=== PATIENT | female | born 2000 | race Caucasian/White ===

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

== ENCOUNTER 2019-01-12 03:40 | Emergency (ER) | payer BC ==
[~2019-01-12] VITALS: Ht 160 cm; Wt 56.8 kg
[~2019-01-12 03:40] MED LIST changes: +CONSTULOSE 20G/30ML PO
[2019-01-12 03:53] VITALS: TEMP 98.2
[2019-01-12 04:01] LABS: BASO % 0.5 % (0.0-2.0); EOS # 0.1 (0.0-0.7); EOS % 1.5 % (0-4.0); GRAN # 3.5 (1.4-6.5); GRAN % 52.6 % (42.2-75.2); HEMOGLOBIN 12.6 g/dl (12.0-15.0); LYMPH # 2.3 (1.2-3.4); LYMPH % 35.4 % (20.0-51.0); MEAN CELL VOLUME 92 fl (80.0-95.0); MEAN CORPUSCULAR HEMOGLOBIN 32 pg (26.0-32.0); MEAN CORPUSCULAR HGB CONC 34 g/dl (33.0-37.0); MEAN PLATELET VOLUME 8.8 fl (7.4-10.4); MONO # 0.6 (0.1-0.6); MONO % 9.8 % (1.7-9.3); PLATELET COUNT 326 K/mm3 (130-400); RED BLOOD COUNT 3.99 M/mm3 (4.10-5.30); REDCELL DISTRIBUTION WIDTH-CV 11.9 % (11.5-14.5)
[2019-01-12 04:02] LABS: HEMATOCRIT 36.7 % (35.0-45.0)
[2019-01-12 04:11] LABS: ALBUMIN 4.4 gm/dL (3.5-5.0); BILIRUBIN,TOTAL 0.4 mg/dL (0.0-1.0); CALCIUM 8.9 mg/dL (8.4-10.2); CREATININE, serum 0.74 (0.52-1.25); TOTAL PROTEIN 7.7 gm/dL (6.4-8.2)
[2019-01-12 04:28] LABS: PROLACTIN 32.4 ng/mL (3.0-18.6)
[2019-01-12 05:52] LABS: COLLECTION METHOD CLEAN CATCH
[2019-01-12 05:58] LABS: PH 6 (5-8); SQUAMOUS EPITHELIAL 0-2 /hpf; URINE APPEARANCE Clear; URINE BACTERIA None Seen /hpf; URINE BILIRUBIN Negative (NEGATIVE); URINE BLOOD Negative (NEGATIVE); URINE COLOR Straw; URINE GLUCOSE Negative (NEGATIVE); URINE KETONE Negative (NEGATIVE); URINE LEUKOCYTE ESTERASE Negative (NEGATIVE); URINE NITRATE Negative (NEGATIVE); URINE PROTEIN(semi-quant) Negative (NEGATIVE); URINE RBC 0-2 /hpf; URINE UROBILINOGEN Negative (NEGATIVE)
[2019-01-12 06:20] LABS: TRICYCLIC ANTIDEPRESS URINE NEGATIVE
[2019-01-12 06:23] LABS: ACETAMINOPHEN 10 ug/mL (10-30)
[2019-01-12 06:33] LABS: SALICYLATE < 1.0 mg/dL
[2019-01-12] MEDS ORDERED: KEPPRA1000 MG PO (10:00)
[2019-01-12 10:10] VITALS: BP 96/51; PULSE 82
== END 2019-01-12 10:10 | disposition home or self-care (01) ==
LOC: COL.ER 03:40
PROVIDERS: Emergency Medicine
DX: G40.909 Epilepsy, unspecified, not intractable, without status epilepticus (principal); F10.129 Alcohol abuse with intoxication, unspecified; Y90.7 Blood alcohol level of 200-239 mg/100 ml
CPT/HCPCS: J1953; J7030

== ENCOUNTER 2020-04-22 19:23 | Emergency (ER) | payer BC ==
[~2020-04-22] VITALS: Ht 157.5 cm; Wt 54.5 kg
[~2020-04-22 19:23] MED LIST changes: +KEPPRA1000 MG PO
[2020-04-22 20:04] LABS: COLLECTION METHOD CLEAN CATCH
[2020-04-22 20:08] LABS: BASO % 0.3 % (0.0-2.0); EOS # 0.1 (0.0-0.7); EOS % 0.6 % (0-4.0); GRAN # 10.3 (1.4-6.5); GRAN % 75.3 % (42.2-75.2); HEMATOCRIT 42.9 % (37.0-47.0); HEMOGLOBIN 14.4 g/dl (12.5-16.0); LYMPH # 2.5 (1.2-3.4); MEAN CELL VOLUME 93 fl (80.0-100.0); MEAN CORPUSCULAR HEMOGLOBIN 31 pg (27.0-31.0); MEAN CORPUSCULAR HGB CONC 34 g/dl (33.0-37.0); MEAN PLATELET VOLUME 8.8 fl (7.4-10.4); MONO # 0.7 (0.1-0.6); MONO % 5.4 % (1.7-9.3); PLATELET COUNT 365 K/mm3 (130-400); RED BLOOD COUNT 4.63 M/mm3 (4.10-5.30); REDCELL DISTRIBUTION WIDTH-CV 11.9 % (11.5-14.5)
[2020-04-22 20:16] LABS: MUCOUS Present /lpf; PH 6 (5-8); SQUAMOUS EPITHELIAL 0-2 /hpf; URINE APPEARANCE Hazy; URINE BACTERIA Rare /hpf; URINE BILIRUBIN Negative (NEGATIVE); URINE BLOOD 2+ (NEGATIVE); URINE COLOR Yellow; URINE GLUCOSE Negative (NEGATIVE); URINE KETONE Negative (NEGATIVE); URINE LEUKOCYTE ESTERASE 1+ (NEGATIVE); URINE NITRATE Negative (NEGATIVE); URINE PROTEIN(semi-quant) Negative (NEGATIVE); URINE RBC >50 /hpf; URINE UROBILINOGEN Negative (NEGATIVE)
[2020-04-22 20:20] LABS: ALANINE AMINOTRANSFERASE 19 U/L (4-34); ALKALINE PHOSPHATASE 64 U/L (50-136); ANION GAP 11 mmol/L (7-16); AST,SGOT 31 U/L (15-37); BILIRUBIN,TOTAL 0.6 mg/dL (0.0-1.0); BLOOD UREA NITROGEN 13 mg/dL (7-17); CALCIUM 9.5 mg/dL (8.4-10.2); CARBON DIOXIDE 23 mmol/L (22-30); CHLORIDE 102 mmol/L (98-107); CREATININE, serum 0.81 (0.52-1.25); GLUCOSE 88 mg/dL (74-106); POTASSIUM 4.1 mmol/L (3.4-5.0); SODIUM 136 mmol/L (137-145); TOTAL PROTEIN 8.5 gm/dL (6.4-8.2)
[2020-04-22 20:22] LABS: C-REACTIVE PROTEIN < 0.5 mg/dL (0.0-0.9)
[2020-04-22] MEDS ORDERED: CEFTIN500 MG PO (21:27)
[2020-04-22] MEDS ORDERED: PYRIDIUM200 M1 PO (21:27)
[2020-04-22 22:04] VITALS: BP 112/75; PULSE 64; TEMP 98.5
== END 2020-04-22 22:05 | disposition home or self-care (01) ==
LOC: COL.ER 19:23
PROVIDERS: Physician Assistant
DX: N39.0 Urinary tract infection, site not specified (principal); G40.901 Epilepsy, unspecified, not intractable, with status epilepticus; Z32.02 Encounter for pregnancy test, result negative
CPT/HCPCS: J0696; J1885; J2405; J3010; J7030; Q9967

== ENCOUNTER 2020-06-06 20:25 | Emergency (ER) | payer BC ==
[~2020-06-06] VITALS: Ht 5.1 cm; Wt 52.3 kg
[~2020-06-06 20:25] MED LIST changes: +CEFTIN500 MG PO; +PYRIDIUM200 M1 PO
[2020-06-06 20:38] VITALS: TEMP 97.6
[2020-06-06 22:00] LABS: COLLECTION METHOD CLEAN CATCH
[2020-06-06 22:13] LABS: ALBUMIN 4.9 gm/dL (3.5-5.0); BILIRUBIN,TOTAL 0.4 mg/dL (0.0-1.0); CALCIUM 9.2 mg/dL (8.4-10.2); CREATININE, serum 0.77 (0.52-1.25); POTASSIUM 3.6 mmol/L (3.4-5.0); TOTAL PROTEIN 8.6 gm/dL (6.4-8.2)
[2020-06-06 22:14] LABS: BASO % 0.1 % (0.0-2.0); EOS % 0.5 % (0-4.0); GRAN % 70.8 % (42.2-75.2); HEMATOCRIT 41.3 % (37.0-47.0); HEMOGLOBIN 13.6 g/dl (12.5-16.0); LYMPH # 1.8 (1.2-3.4); LYMPH % 20.8 % (20.0-51.0); MEAN CELL VOLUME 92 fl (80.0-100.0); MEAN CORPUSCULAR HEMOGLOBIN 30 pg (27.0-31.0); MEAN CORPUSCULAR HGB CONC 33 g/dl (33.0-37.0); MEAN PLATELET VOLUME 9.2 fl (7.4-10.4); MONO # 0.7 (0.1-0.6); MONO % 7.6 % (1.7-9.3); PLATELET COUNT 330 K/mm3 (130-400); RED BLOOD COUNT 4.51 M/mm3 (4.10-5.30)
[2020-06-06 22:15] LABS: MUCOUS Present /lpf; PH 6 (5-8); URINE APPEARANCE Hazy; URINE BACTERIA None Seen /hpf; URINE BILIRUBIN Negative (NEGATIVE); URINE BLOOD 1+ (NEGATIVE); URINE COLOR Yellow; URINE GLUCOSE Negative (NEGATIVE); URINE KETONE Trace (NEGATIVE); URINE LEUKOCYTE ESTERASE 1+ (NEGATIVE); URINE NITRATE Negative (NEGATIVE); URINE PROTEIN(semi-quant) 1+ (NEGATIVE); URINE RBC 0-2 /hpf
[2020-06-06] MEDS ORDERED: MACROBID 1100 MG/CAP PO (22:23)
[2020-06-06 22:40] VITALS: BP 122/87; PULSE 77
== END 2020-06-06 21:34 | disposition home or self-care (01) ==
LOC: COL.ER 20:25
PROVIDERS: Physician Assistant
DX: T83.39XA Other mechanical complication of intrauterine contraceptive device, initial encounter (principal); N30.90 Cystitis, unspecified without hematuria; U07.1 COVID-19; G40.909 Epilepsy, unspecified, not intractable, without status epilepticus

== ENCOUNTER 2020-06-10 12:21 | Inpatient (IN) | payer BC ==
[~2020-06-10] VITALS: Ht 157.5 cm; Wt 54.4 kg
[~2020-06-10 12:21] MED LIST changes: +MACROBID 1100 MG/CAP PO
--- NOTE | 2020-06-10 13:30 | NUR ---
1330: Patient from ER via wheelchair. Patient COVID positive and to room 217. Proper procedure and PPE used. Patient void and into bed. Patient states "I have been having pain for days, I have lower abdominal stabbing pain that has moved higher and lower back pain", "I was tested for covid due to my mom being positive and I did end up having symptoms of no taste/smell and tested positive on 06/05/20. Plan of care discussed and questions answered. 1350: IV started in left upper arm and blood obtained and to lab, patient tolerates well. Patient to CT. Patient relocated to LR1 and plan of care updated.
[2020-06-10 14:13] VITALS: BP 124/68; PULSE 92; TEMP 99.1
[2020-06-10] MEDS ORDERED: MIDOL CAPLET1 EACH (14:22)
[2020-06-10] MEDS ORDERED: TYLENOL 500MG500 MG PO (14:22)
[2020-06-10 14:33] LABS: BASO % 0.2 % (0.0-2.0); EOS % 0.2 % (0-4.0); GRAN % 82.9 % (42.2-75.2); HEMATOCRIT 40.7 % (37.0-47.0); HEMOGLOBIN 13.6 g/dl (12.5-16.0); LYMPH # 1.4 (1.2-3.4); LYMPH % 10.3 % (20.0-51.0); MEAN CELL VOLUME 91 fl (80.0-100.0); MEAN CORPUSCULAR HEMOGLOBIN 30 pg (27.0-31.0); MEAN CORPUSCULAR HGB CONC 33 g/dl (33.0-37.0); MEAN PLATELET VOLUME 9.6 fl (7.4-10.4); MONO # 0.8 (0.1-0.6); PLATELET COUNT 400 K/mm3 (130-400); RED BLOOD COUNT 4.47 M/mm3 (4.10-5.30); REDCELL DISTRIBUTION WIDTH-CV 12.5 % (11.5-14.5)
[2020-06-10 14:49] LABS: CREATININE, serum 0.69 (0.52-1.25); POTASSIUM 4.3 mmol/L (3.4-5.0)
[2020-06-10 15:02] LABS: C-REACTIVE PROTEIN 15.2 mg/dL (0.0-0.9)
[2020-06-10 18:06] VITALS: BP 119/67; PULSE 92; TEMP 98.1
[2020-06-10 19:00] VITALS: BP 116/67; PULSE 77; TEMP 98.9
[2020-06-11 01:00] VITALS: BP 110/52; PULSE 62; TEMP 98.3
[2020-06-11 07:40] VITALS: BP 109/60; PULSE 73; TEMP 97.9
[2020-06-11 12:00] VITALS: BP 107/63; PULSE 69; TEMP 98.3
[2020-06-11 14:22] LABS: BASO % 0.2 % (0.0-2.0); EOS # 0.1 (0.0-0.7); EOS % 0.8 % (0-4.0); GRAN # 10.8 (1.4-6.5); GRAN % 81.3 % (42.2-75.2); LYMPH # 1.4 (1.2-3.4); LYMPH % 10.8 % (20.0-51.0); MEAN CELL VOLUME 91 fl (80.0-100.0); MEAN CORPUSCULAR HGB CONC 33 g/dl (33.0-37.0); MEAN PLATELET VOLUME 9.1 fl (7.4-10.4); MONO # 0.9 (0.1-0.6); MONO % 6.6 % (1.7-9.3); PLATELET COUNT 391 K/mm3 (130-400); RED BLOOD COUNT 3.77 M/mm3 (4.10-5.30); REDCELL DISTRIBUTION WIDTH-CV 12.2 % (11.5-14.5)
[2020-06-11 14:31] LABS: HEMATOCRIT 34.4 % (37.0-47.0); HEMOGLOBIN 11.3 g/dl (12.5-16.0); MEAN CORPUSCULAR HEMOGLOBIN 30 pg (27.0-31.0)
--- NOTE | 2020-06-11 15:30 | NUR ---
This RN at bedside and patient states "I feel like my pain is bad like it was bad before I came to hospital, my bleeding has also been heavy and filled a pad in like 3 hours and its deep red color, my pain is an 8-10 and still in my lower abdomen/back" Dr. Song updated and no new orders given. 1730: Patient calls out and states she threw up and this RN to bedside. Patient rating her pain a 10. Dr. Song notified and orders received. See EMAR/see physician notification.
[2020-06-11 16:30] VITALS: BP 126/72; PULSE 81; TEMP 98.9
[2020-06-11 17:26] VITALS: BP 124/69; PULSE 81; TEMP 99
[2020-06-11 20:00] VITALS: BP 131/74; PULSE 83; TEMP 98.7
[2020-06-12 02:00] VITALS: BP 125/74; PULSE 99; TEMP 97.5
[2020-06-12 08:15] VITALS: BP 98/53; PULSE 60; TEMP 97.9
--- NOTE | 2020-06-12 11:50 | NUR ---
Request pain medication. Morphine 2 mg iv given per request and as ordered.
[2020-06-12 12:41] LABS: BASO % 0.2 % (0.0-2.0); EOS # 0.1 (0.0-0.7); GRAN # 10.4 (1.4-6.5); GRAN % 77.4 % (42.2-75.2); HEMATOCRIT 28.6 % (37.0-47.0); HEMOGLOBIN 9.5 g/dl (12.5-16.0); LYMPH # 1.6 (1.2-3.4); LYMPH % 12.1 % (20.0-51.0); MEAN CELL VOLUME 93 fl (80.0-100.0); MEAN CORPUSCULAR HEMOGLOBIN 31 pg (27.0-31.0); MEAN CORPUSCULAR HGB CONC 33 g/dl (33.0-37.0); MEAN PLATELET VOLUME 9.2 fl (7.4-10.4); MONO # 1.1 (0.1-0.6); MONO % 7.9 % (1.7-9.3); PLATELET COUNT 419 K/mm3 (130-400); RED BLOOD COUNT 3.07 M/mm3 (4.10-5.30); REDCELL DISTRIBUTION WIDTH-CV 12.4 % (11.5-14.5)
[2020-06-12 13:45] VITALS: BP 91/67; PULSE 97; TEMP 98
[2020-06-12 18:45] VITALS: BP 138/74; PULSE 105; TEMP 98.6
[2020-06-13] VITALS: BP 130/76; PULSE 86; TEMP 98.7
--- NOTE | 2020-06-13 07:00 | NUR ---
Patient sleeping at this time. 0810: This RN at bedside and patient rating pain 7 out of 10 and requests pain medications. See EMAR. 0840: This RN at bedside and Dr. Song at bedside and assessing patient. Patient agrees with plan to remove IUD and swab for other cultures. 0845: Dr. Song removed IUD at this time aswell and swabs patient. Patient tolerates well. Patient updated on plan of care.
[2020-06-13 08:05] VITALS: BP 115/68; PULSE 82; TEMP 98.7
[2020-06-13 09:19] LABS: BASO % 0.2 % (0.0-2.0); EOS # 0.1 (0.0-0.7); EOS % 1.1 % (0-4.0); GRAN # 8.4 (1.4-6.5); GRAN % 80.4 % (42.2-75.2); LYMPH # 1.2 (1.2-3.4); LYMPH % 11.8 % (20.0-51.0); MEAN CELL VOLUME 91 fl (80.0-100.0); MEAN CORPUSCULAR HGB CONC 34 g/dl (33.0-37.0); MEAN PLATELET VOLUME 9.2 fl (7.4-10.4); MONO # 0.7 (0.1-0.6); MONO % 6.2 % (1.7-9.3); PLATELET COUNT 468 K/mm3 (130-400); RED BLOOD COUNT 3.74 M/mm3 (4.10-5.30); REDCELL DISTRIBUTION WIDTH-CV 12.1 % (11.5-14.5)
[2020-06-13 09:37] LABS: HEMOGLOBIN 11.5 g/dl (12.5-16.0); MEAN CORPUSCULAR HEMOGLOBIN 31 pg (27.0-31.0)
[2020-06-13 11:28] VITALS: BP 119/72; PULSE 71; TEMP 98.1
[2020-06-13 16:03] VITALS: BP 111/65; PULSE 77; TEMP 98.1
--- NOTE | 2020-06-13 17:20 | NUR ---
Dr. Song at bedside and updating patient on results and plan of care. Questions answered and patient understands and agrees with plan of care.
[2020-06-13 18:59] VITALS: BP 109/60; PULSE 64; TEMP 97.8
[2020-06-14 02:00] VITALS: BP 101/55; PULSE 76; TEMP 97.5
[2020-06-14 07:26] VITALS: BP 105/62; PULSE 65; TEMP 98.5
[2020-06-14 12:45] LABS: HEMOGLOBIN 10.7 g/dl (12.5-16.0); MEAN CELL VOLUME 92 fl (80.0-100.0); MEAN CORPUSCULAR HEMOGLOBIN 30 pg (27.0-31.0); MEAN CORPUSCULAR HGB CONC 33 g/dl (33.0-37.0); MEAN PLATELET VOLUME 8.8 fl (7.4-10.4); PLATELET COUNT 460 K/mm3 (130-400); RED BLOOD COUNT 3.54 M/mm3 (4.10-5.30); REDCELL DISTRIBUTION WIDTH-CV 12.2 % (11.5-14.5)
[2020-06-14 12:47] LABS: HEMATOCRIT 32.6 % (37.0-47.0)
[2020-06-14 12:56] LABS: ALBUMIN 3.6 gm/dL (3.5-5.0); BILIRUBIN,TOTAL 0.4 mg/dL (0.0-1.0); C-REACTIVE PROTEIN 6.5 mg/dL (0.0-0.9); CREATININE, serum 0.7 (0.52-1.25); POTASSIUM 4.2 mmol/L (3.4-5.0); TOTAL PROTEIN 6.9 gm/dL (6.4-8.2)
--- NOTE | 2020-06-14 14:10 | NUR ---
Dr Song called this nurse and updated on pt status today. CRP ordered for tomorrow AM.
[2020-06-14 14:11] LABS: BAND 3 % (0-10); LYMPHOCYTE 27 % (20.0-51.0); NEUTROPHILS 65 % (42.0-75.2)
[2020-06-14 14:12] LABS: PLATELET ESTIMATE INCREASED (NORMAL)
[2020-06-14 15:32] VITALS: BP 110/59; PULSE 96; TEMP 98.5
--- NOTE | 2020-06-14 16:00 | NUR ---
pt states vaginal bleeding has picked up this afternoon, bleeding is equivalent to a period. 1410:Dr Cat here and notified. Will continue to monitor.
[2020-06-14 20:30] VITALS: BP 116/65; PULSE 86; TEMP 98.2
[2020-06-15 03:25] VITALS: BP 92/50; PULSE 78; TEMP 98.1
[2020-06-15 08:30] VITALS: BP 124/68; PULSE 83; TEMP 98.2
[2020-06-15 15:30] VITALS: BP 98/64; PULSE 84; TEMP 98.2
[2020-06-15 20:00] VITALS: BP 104/59; PULSE 84; TEMP 98.7
--- NOTE | 2020-06-16 03:15 | NUR ---
nurse @ pt bedside x 5 min after knocking on room door: (logging into computer, mixing anti-biotics, etc) pt sleeping soundly, awakened by touching pt's hand, calling her name and gently shaking her shoulder. When asked about pain, pt states "it's horrible".
[2020-06-16 08:19] VITALS: BP 102/56; PULSE 76; TEMP 98.6
[2020-06-16] MEDS ORDERED: NORCO 325 MG-51 TAB PO (08:56)
[2020-06-16] MEDS ORDERED: DOXYCYCLINE HY100 MG PO (08:56)
[2020-06-16] MEDS ORDERED: IBU600 MG PO (08:56)
--- NOTE | 2020-06-16 11:40 | NUR ---
1130 ALL DISCHARGE INSTRUCTIONS GIVEN TO PATIENT WITH VERBAL UNDERSTANDING NOTED. DENIES NEEDS. DISMISSED TO POV WITH MASK ON
== END 2020-06-16 11:35 | disposition home or self-care (01) | DRG 757 ==
LOC: OB 12:21 → LDR 14:45
PROVIDERS: Obstetrics & Gynecology; ADMIT Obstetrics & Gynecology
DX: N73.9 Female pelvic inflammatory disease, unspecified (principal); U07.1 COVID-19; N70.03 Acute salpingitis and oophoritis; R10.31 Right lower quadrant pain; D64.9 Anemia, unspecified; N93.9 Abnormal uterine and vaginal bleeding, unspecified; N30.90 Cystitis, unspecified without hematuria
CPT/HCPCS: J0290; J0694; J1580; J2270; J2550; Q9967

== ENCOUNTER 2022-02-03 06:04 | Emergency (ER) | payer BC ==
[~2022-02-03] VITALS: Ht 157.5 cm; Wt 54.5 kg
[~2022-02-03 06:04] MED LIST changes: +DOXYCYCLINE HY100 MG PO; +IBU600 MG PO; +MIDOL CAPLET1 EACH; +TYLENOL 500MG500 MG PO
[2022-02-03] MEDS ORDERED: VRAYLAR3 MG PO (06:18)
[2022-02-03] MEDS ORDERED: DESYREL 100MG100 MG PO (06:18)
[2022-02-03] MEDS ORDERED: ATARAX50 MG PO (06:18)
[2022-02-03 06:49] LABS: BASO % 0.4 % (0.0-2.0); EOS # 0.1 K/mm3 (0.0-0.7); EOS % 0.6 % (0.0-4.0); GRAN # 5.8 K/mm3 (1.4-6.5); GRAN % 60.6 % (42.2-75.2); HEMATOCRIT 40.1 % (37.0-47.0); LYMPH % 31.4 % (20.0-51.0); MEAN CELL VOLUME 89 fl (80.0-100.0); MEAN CORPUSCULAR HEMOGLOBIN 31 pg (27-31); MEAN CORPUSCULAR HGB CONC 35 g/dl (33.0-37.0); MEAN PLATELET VOLUME 8.4 fl (7.4-10.4); MONO # 0.7 K/mm3 (0.1-0.6); MONO % 6.8 % (1.7-9.3); PLATELET COUNT 419 K/mm3 (130-400); RED BLOOD COUNT 4.49 M/mm3 (4.10-5.30); REDCELL DISTRIBUTION WIDTH-CV 11.7 % (11.5-14.5)
[2022-02-03 07:11] LABS: ALANINE AMINOTRANSFERASE 15 U/L (0-55); ALBUMIN 4.4 gm/dL (3.5-5.0); ALCOHOL(ethanol),MEDICAL 259 mg/dL (0-10); ALKALINE PHOSPHATASE 54 U/L (40-150); ANION GAP 11 mmol/L (7-16); AST,SGOT 19 U/L (5-34); BILIRUBIN,TOTAL 0.3 mg/dL (0.2-1.2); BLOOD UREA NITROGEN 9 mg/dL (7-19); CALCIUM 8.9 mg/dL (8.4-10.2); CARBON DIOXIDE 23 mmol/L (22-29); CHLORIDE 109 mmol/L (98-107); CREATININE, serum 0.82 mg/dL (0.57-1.11); GLUCOSE 101 mg/dL (70-99); POTASSIUM 4.1 mmol/L (3.5-4.5); SODIUM 143 mmol/L (136-145)
[2022-02-03 07:12] LABS: TRICYCLIC ANTIDEPRESS URINE NEGATIVE
[2022-02-03 07:16] LABS: ACETAMINOPHEN < 1.0 ug/mL (10-30); SALICYLATE < 5.0 mg/dL (15.0-30.0)
[2022-02-03 16:20] VITALS: TEMP 97.5
[2022-02-03 21:28] VITALS: BP 112/71; PULSE 92
== END 2022-02-03 21:28 | disposition home or self-care (01) ==
LOC: COL.ER 06:04
PROVIDERS: Personal Emergency Response Attendant
DX: S60.811A Abrasion of right wrist, initial encounter (principal); X78.8XXA Intentional self-harm by other sharp object, initial encounter
CPT/HCPCS: J1630